=== PATIENT | female | born 1980 | race Caucasian/White ===

== ENCOUNTER 2023-11-15 21:43 | Emergency (ER) | payer OTHER ==
[~2023-11-15] VITALS: Ht 172.7 cm; Wt 65.8 kg
[2023-11-15] MEDS ORDERED: ACETAMINOPHEN 500 MG TABLET ONE (22:38)
[2023-11-15] MEDS ORDERED: IBUPROFEN 400 MG TABLET ONE (22:38)
[2023-11-15] MEDS: ACETAMINOPHEN 500 MG TABLET PO ONE (22:40)
[2023-11-15] MEDS: IBUPROFEN 400 MG TABLET PO ONE (22:40)
[2023-11-15] MEDS ORDERED: LIDO30AD10 TP (23:15)
[2023-11-15] MEDS: LIDOCAINE 5% PATCH TD ONE (23:20)
[2023-11-15 23:51] VITALS: BP 101/68; O2SAT 99
== END 2023-11-15 23:51 | disposition home or self-care (01) ==
LOC: ER 21:47
DX: M79.671 Pain in right foot (principal); J45.909 Unspecified asthma, uncomplicated; Z88.2 Allergy status to sulfonamides
CPT/HCPCS: 73630; A4606; A4663; A9150